=== PATIENT | born 1965 | race Caucasian/White ===

== ENCOUNTER 2025-03-07 06:35 | Outpatient (CLI) | payer OTHER, SELFPAY ==
--- NOTE | 2025-03-07 07:00 | NM_ITS ---
WS: [id number] EXAMINATION: NM parathyroid [id number] ORDER DATE: 03/07/2025 6:45 AM COMPARISON: None HISTORY: hyperparathyroidism TECHNIQUE: Parathyroid scintigraphy with 19.8 mCi of technetium 99m sestamibi administered. AP and oblique views obtained with and without chin and suprasternal notch markers. Initial and 2 hour delayed imaging acquired. FINDINGS: Normal homogeneous thyroid uptake on the initial imaging. Normal thyroid washout. Normal salivary gland activity. Ovoid area of retained activity projected over the inferior RIGHT thyroid gland suspicious for parathyroid adenoma. Recommend correlation with laboratory markers NM/NM parathyroid [id number] IMPRESSION: Suspicious area of retained activity projected over the RIGHT inferior thyroid suspicious for parathyroid adenoma
== END 2025-03-07 06:36 | disposition home or self-care (01) ==
PROVIDERS: PCP Nurse Practitioner Family; Visit Provider Internal Medicine
DX: E21.0 Primary hyperparathyroidism (principal)
CPT/HCPCS: 78070; A9500